=== PATIENT | female | born 1965 | race Caucasian/White ===

== ENCOUNTER → 2021-01-17 | Outpatient (CLI) | payer BC ==
--- NOTE | 2021-01-20 10:20 | MM ---
Reason for exam: screening (asymptomatic). Last mammogram was performed 9 years and 6 months ago. History: Patient is postmenopausal and is nulliparous. Family history of breast cancer in maternal grandmother and breast cancer in paternal aunt. Took hormonal contraceptives for 25 years. Physical Findings: A clinical breast exam by your physician is recommended on an annual basis and results should be correlated with mammographic findings. MG Screening Mammo w CAD Bilateral CC and MLO view(s) were taken. Prior study comparison: July 14, 2011, mammogram. March 26, 2010, mammogram. There are scattered fibroglandular densities. There is no discrete abnormality. No significant changes when compared with prior studies. ASSESSMENT: Negative, BI-RAD 1 RECOMMENDATION: Routine screening mammogram of both breasts in 1 year.
== END | disposition home or self-care (01) ==
LOC: RADMAMWWP 08:02
PROVIDERS: ATTEND Family Medicine
DX: Z12.31 Encounter for screening mammogram for malignant neoplasm of breast (principal)
CPT/HCPCS: 77067

== ENCOUNTER 2021-08-29 08:15 | Day surgery (SDC) | payer BC ==
[2021-08-27 11:21] VITALS: BMI 26.2
[~2021-08-29 08:15] MED LIST: LACTATED RINGERS 1,000 ML IV SCH; LIDOCAINE 1% (10MG/ML) FOR IV START INTRADERMA PRN
[2021-08-29 08:56] VITALS: TEMP 98.6
[2021-08-29] MEDS ORDERED: PROPOFOL 10 MG/ML 20 ML VIAL IV ONE (09:43)
--- NOTE | 2021-08-29 10:00 | P.PCN ---
Date of Procedure: 08/29/21 Procedure(s) Performed: BRIEF HISTORY: Patient is a 55-year-old pleasant white female scheduled for an elective colonoscopy as a part of screening for colorectal neoplasia. PROCEDURE PERFORMED: Colonoscopy. PREOPERATIVE DIAGNOSIS: Screening for colon cancer. IV sedation per Anesthesia. PROCEDURE: After informed consent was obtained, the patient, was brought into the endoscopy unit. IV sedation was administered by Anesthesia under continuous monitoring. Digital rectal examination was normal. Initially the Olympus CF-160 flexible video colonoscope was then inserted in the rectum, gradually advanced into the cecum without any difficulty. Careful examination was performed as the scope was gradually being withdrawn. Ileocecal valve and the appendiceal orifice were visualized and appeared normal. Prep was excellent. Mucosa of the cecum, ascending colon, transverse colon, descending colon, sigmoid colon, and rectum appeared normal. Retroflexion was performed in the rectum and no lesions were seen. The patient tolerated the procedure well. IMPRESSION: Normal-appearing colon from rectum to cecum with no evidence of colorectal neoplasia . RECOMMENDATIONS: Findings of this examination were discussed with the patient as well as a family. She was advised to have a repeat screening colonoscopy in 10 years..
[2021-08-29 10:31] VITALS: BP 120/75; PULSE 62; RESP 18
== END 2021-08-29 10:45 | disposition home or self-care (01) ==
LOC: ORWHC2ENDO 08:15
PROVIDERS: ATTEND Internal Medicine Gastroenterology
DX: Z12.11 Encounter for screening for malignant neoplasm of colon (principal)
CPT/HCPCS: 45378; J2704

== ENCOUNTER → 2023-11-25 | Outpatient (CLI) | payer BC ==
--- NOTE | 2023-11-25 09:20 | MM ---
Reason for Exam: Screening (asymptomatic). Last mammogram was performed 2 year(s) and 11 month(s) ago. Patient History: Menarche at age 10. Patient has no children. Postmenopausal. Patient used Hormonal Contraceptives for 25 years. Maternal grandmother had breast cancer. Paternal aunt had breast cancer. Risk Values: She 5 year model risk: 1.6%. NCI Lifetime model risk: 8.1%. Prior Study Comparison: 03/26/2010 Screening Mammogram, Unknown. 07/14/2011 Screening Mammogram, Unknown. 01/17/2021 Bilateral Screening Mammogram, [facility]. Tissue Density: There are scattered fibroglandular densities. Findings: Analyzed By CAD. There is no suspicious group of microcalcifications or new suspicious mass. Overall Assessment: Negative, BI-RAD 1 Management: Screening Mammogram of both breasts in [address] [facility] will attempt to contact patient to return for supplemental views and ultrasound if indicated. Patient should continue monthly self-breast exams. A clinical breast exam by your physician is recommended on an annual basis. This exam should not preclude additional follow-up of suspicious palpable abnormalities. Note on She scores and lifetime risk: 1. A She score greater than 3% is considered moderate risk. If this is the case, consider specialist referral to assess eligibility for a risk reducing agent. 2. If overall lifetime risk for the development of breast cancer is 20% or higher, the patient may qualify for future screening with alternating mammogram and breast MRI. Electronically signed and approved by: Omar Baeza DO
== END | disposition home or self-care (01) ==
LOC: RADMAMWWP 07:30
PROVIDERS: ATTEND Family Medicine
DX: Z12.31 Encounter for screening mammogram for malignant neoplasm of breast (principal); Z78.0 Asymptomatic menopausal state; Z80.3 Family history of malignant neoplasm of breast
CPT/HCPCS: 77067

== ENCOUNTER → 2025-01-04 | Outpatient (CLI) | payer BC ==
--- NOTE | 2025-01-04 08:07 | MM ---
Reason for Exam: Screening (asymptomatic). Last mammogram was performed 1 year(s) and 1 month(s) ago. Patient History: Menarche at age 10. Patient has no children. Postmenopausal. Patient used Hormonal Contraceptives for 25 years. Maternal grandmother had breast cancer, age 60. Paternal grandmother had breast cancer, age 50. Risk Values: She 5 year model risk: 1.6%. NCI Lifetime model risk: 7.9%. Prior Study Comparison: 07/14/2011 Screening Mammogram, Unknown. 01/17/2021 Bilateral Screening Mammogram, [facility]. 11/25/2023 Bilateral MG screening mammo w CAD, [facility]. Tissue Density: There are scattered areas of fibroglandular density. Findings: Analyzed By CAD. Asymmetric density upper outer right breast 8.8 cm from. Additional views are recommended. There is no suspicious group of microcalcifications or new suspicious mass in either breast. Overall Assessment: Incomplete: need additional imaging evaluation, BI-RAD 0 Management: Diagnostic Mammogram of the right breast. . Patient should continue monthly self-breast exams. A clinical breast exam by your physician is recommended on an annual basis. This exam should not preclude additional follow-up of suspicious palpable abnormalities. Note on She scores and lifetime risk: 1. A She score greater than 3% is considered moderate risk. If this is the case, consider specialist referral to assess eligibility for a risk reducing agent. 2. If overall lifetime risk for the development of breast cancer is 20% or higher, the patient may qualify for future screening with alternating mammogram and breast MRI. [facility], , 01/04/2025 8:04 AM. Electronically signed and approved by: Gilbert Oliver M.D. Radiologis
== END | disposition home or self-care (01) ==
LOC: RADMAMWWP 07:15
PROVIDERS: ATTEND Family Medicine
DX: Z12.31 Encounter for screening mammogram for malignant neoplasm of breast (principal); R92.323 Mammographic fibroglandular density, bilateral breasts; Z78.0 Asymptomatic menopausal state; Z80.3 Family history of malignant neoplasm of breast; Z92.0 Personal history of contraception
CPT/HCPCS: 77067

== ENCOUNTER → 2025-01-09 | Outpatient (CLI) | payer BC ==
--- NOTE | 2025-01-09 08:27 | MM ---
Reason for Exam: Additional evaluation requested from abnormal screening. Last screening mammogram was performed less than 1 month ago. Patient History: Menarche at age 10. Patient has no children. Postmenopausal. Patient used Hormonal Contraceptives for 25 years. Maternal grandmother had breast cancer, age 60. Paternal grandmother had breast cancer, age 50. Risk Values: She 5 year model risk: 1.6%. NCI Lifetime model risk: 7.9%. Prior Study Comparison: 03/26/2010 Screening Mammogram, Unknown. 07/14/2011 Screening Mammogram, Unknown. 01/17/2021 Bilateral Screening Mammogram, [facility]. 11/25/2023 Bilateral MG screening mammo w CAD, [facility]. 01/04/2025 Bilateral MG screening mammo w CAD, [facility]. Tissue Density: Right: There are scattered areas of fibroglandular density. Findings: Analyzed By CAD. No distinct new lesion persists on additional views. Overall Assessment: Negative, BI-RAD 1 Management: Screening Mammogram of both breasts in 1 year. Return to routine follow-up. Results were given to the patient verbally at the time of exam. Patient should continue monthly self-breast exams. A clinical breast exam by your physician is recommended on an annual basis. This exam should not preclude additional follow-up of suspicious palpable abnormalities. Note on She scores and lifetime risk: 1. A She score greater than 3% is considered moderate risk. If this is the case, consider specialist referral to assess eligibility for a risk reducing agent. 2. If overall lifetime risk for the development of breast cancer is 20% or higher, the patient may qualify for future screening with alternating mammogram and breast MRI. [facility], , 01/09/2025 8:24 AM. Electronically signed and approved by: Clay Thrasher M.D.
== END | disposition home or self-care (01) ==
LOC: RADMAMWWP 08:07
PROVIDERS: ATTEND Family Medicine
DX: R92.8 Other abnormal and inconclusive findings on diagnostic imaging of breast (principal); R92.323 Mammographic fibroglandular density, bilateral breasts; Z78.0 Asymptomatic menopausal state; Z92.0 Personal history of contraception; Z80.3 Family history of malignant neoplasm of breast
CPT/HCPCS: 77061; 77065

== ENCOUNTER 2025-03-02 06:06 | Day surgery (SDC) | payer BC ==
[2025-02-27 08:54] VITALS: BMI 26.2
[~2025-03-02 06:06] MED LIST changes: -LACTATED RINGERS 1,000 ML IV SCH; -LIDOCAINE 1% (10MG/ML) FOR IV START INTRADERMA PRN; +Pre Op ABX Message 1 EACH MISC MISCELLANE ONE
[2025-03-02] MEDS: IV FLUID CONTINUATION 1,000 ML IV ONE (06:54)
[2025-03-02] MEDS: LACTATED RINGERS 1,000 ML IV SCH (06:54)
[2025-03-02] MEDS ORDERED: MIDAZOLAM 2 MG/2 ML VIAL IV PRN (07:00)
[2025-03-02] MEDS ORDERED: HYDROmorphone 0.5 MG/0.5 ML SYRINGE IVP PRN (07:00)
[2025-03-02] MEDS: DEXAMETHASONE SOD PHOSPHATE 4 MG/ML 1 ML VIAL IVP STA (07:02)
[2025-03-02] MEDS: ONDANSETRON 4 MG/2 ML VIAL IVP STA (07:03)
[2025-03-02] MEDS ORDERED: fentaNYL (PF) 50 MCG/ML 2 ML AMP ONE (07:25)
[2025-03-02] MEDS ORDERED: LIDOCAINE 1% INJ 10MG/ML (20 ML MDV) ONE (07:25)
[2025-03-02] MEDS ORDERED: ePHEDrine 50 MG/ML 1 ML VIAL ONE (07:25)
[2025-03-02] MEDS ORDERED: WATER FOR INJECTION, STERILE 10 ML VIAL IV ONE (07:25)
[2025-03-02] MEDS ORDERED: MIDAZOLAM 2 MG/2 ML VIAL ONE (07:25)
[2025-03-02] MEDS ORDERED: PROPOFOL 10 MG/ML 20 ML VIAL IV ONE (07:25)
[2025-03-02] MEDS: SODIUM CHLORIDE 0.9% 100 ML with ceFAZolin 2,000 MG IV ONE (07:35)
[2025-03-02] MEDS: BUPIVACAINE (PF) 0.25% 30 ML VIAL SQ ONE (07:40)
[2025-03-02] MEDS: ceFAZolin 1,000 MG in SODIUM CHLORIDE 0.9% 1,000 ML IRRIGATION ONE (07:52)
[2025-03-02 08:52] VITALS: RESP 16; TEMP 97.6
--- NOTE | 2025-03-02 08:59 | P.OP ---
Date of Procedure: 03/02/25 Preoperative Diagnosis: 1. Hallux valgus right foot 2. Metatarsalgia right second metatarsal Postoperative Diagnosis: 1. Same 2. Same Procedure(s) Performed: 1. Bunionectomy by double osteotomy right foot 2. Second metatarsal osteotomy right foot Implants: 4.0 mm MIS bunion beveled screw 3.5 mm MIS bunion screwX 2 Anesthesia: [id number] Surgeon: Alberto Cooper Estimated Blood Loss (ml): 1 Pathology: none sent Condition: stable Disposition: PACU Description of Procedure: The patient was brought into the operative room placed on table supine position. Timeout was taken to confirm correct patient identifiers, correct laterality of surgery, and correct procedure. Once all staff in the room were in agreement the timeout, the patient was induced and placed under general anesthesia. A well-padded tourniquet was placed on the right thigh and then 20 cc of 0.25% Marcaine was injected as a ankle block. The right foot was prepped and draped in usual manner. The leg was exsanguinated, the knee flexed, and the tourniquet inflated to 250 mmHg. Under direct fluoroscopic visualization, metallic marker was used to sarmad the first tarsometatarsal joint as well as the flare of the first metatarsal of the location of the osteotomy. Then a small stab incision was made medially on the first metatarsal of the area of osteotomy. An elevator was used to remove the soft tissue from the dorsal aspect of the first metatarsal. A 2 mm rotary bur that was then inserted from medial to lateral. It was then rotated dorsally and plantarly to complete the osteotomy. A hemostat was placed into the medullary canal of first metatarsal and was used to shift the first metatarsal head laterally. The reduction device was then inserted into the medullary canal and used to shift and hold the capital fragment in its corrected alignment. A guidewire was placed through the shifting device and advanced into the second metatarsal to maintain the positioning. Fluoroscopic imaging showed nearly full shift of the capital fragment. This sagittal plane alignment was within normal limits. A guidewire for 4.0 mm beveled screw was inserted at the medial base of the first metatarsal near the TMT joint. It was advanced distally and laterally until it came to the lateral cortex of the first metatarsal. Fluoroscopy was used to check the alignment on the lateral view. Once that was aligned the wire was advanced through the lateral cortex and into the capital fragment. Fluoroscopic imaging confirmed the proper placement the wire on the AP and lateral views. The parallel guide was placed over the first wire and another wire was placed to the guide and advanced across the osteotomy parallel to the first. Final fluoroscopic imaging showed proper alignment of both wires. The first MPJ was dorsiflexed and the proximal wire was advanced out the skin and clamped with a hemostat. The wire was measured for proper screw length and drilling was performed into the capital fragment. The screw was inserted over the wire and advanced until the bevel contacted the medial cortex. It was then finished by hand until the bevel was flush with the medial cortex of the first metatarsal. Fluoroscopic imaging confirmed proper placement of screw. The same procedure was used for the second wire. Both screws were properly positioned on fluoroscopy. The capital fragment alignment remained unchanged. Then attention was directed to the proximal phalanx of the great toe for the [place] osteotomy. A small stab incision was made through the skin on the medial surface of the proximal phalanx. The bur was inserted and advanced to the lateral cortex but did not penetrate the lateral cortex. The bur was then swept dorsally and plantarly to perform the wedge osteotomy. Once completed the osteotomy was reduced to correct the angular deformity the great toe once adequate correction was obtained, a guidewire for a 3.5 mm beveled screw was then placed at the medial base of the proximal phalanx and advanced in a distal lateral direction across the osteotomy. The wire was measured for proper screw length. Drilling was done just past the osteotomy. The screw was advanced over the wire while pressure was placed on the osteotomy until the screw was fully inserted. Final fluoroscopic imaging showed proper placement of all screws on the AP and lateral views. Correction of the first metatarsal head was maintained. Sagittal plane alignment of the first metatarsal was within normal limits. Then a larger 4.3 mm bur was used to resect the medial eminence on the first metatarsal parallel to the distal screw. Then all wounds were thoroughly irrigated with antibiotic saline. All incisions were closed with 3-0 nylon. Arthrex jumpstart and dry sterile dressing were applied to the right foot. The tourniquet was released and capillary refill returned all digits on the right foot.
[2025-03-02] MEDS: HYDROcodone/APAP 5-325MG 1 EACH TAB PO STA (09:46)
[2025-03-02 10:12] VITALS: BP 126/83; PULSE 87
== END 2025-03-02 10:59 | disposition home or self-care (01) ==
LOC: OR 06:06
PROVIDERS: ATTEND Podiatrist
DX: M20.11 Hallux valgus (acquired), right foot (principal); M77.41 Metatarsalgia, right foot; M19.071 Primary osteoarthritis, right ankle and foot; Z79.899 Other long term (current) drug therapy
CPT/HCPCS: 28299; 28308; J2250; J1100; J2405; J0690; J2003; J3010; J2704; J0665